=== PATIENT | female | born 1970 | race African-American/Black ===

== ENCOUNTER → 2016-08-05 | Outpatient (CLI) | payer OTHER, BC ==
[~2016-08-05] MED LIST: APAP500 PO; DERMOPLAST SPRA56 ML; IBUPROFEN 600600 M1 PO; LANOLIN56 GM; LORTAB 5 MG/5001 TA1 PO; PHENERGAN 25 MG25 M1 PO; PROMETRIUM200 MG PO; Prenatal PO
== END ==
LOC: ULTRA 01:12
DX: R92.8 Other abnormal and inconclusive findings on diagnostic imaging of breast (principal)

== ENCOUNTER → 2017-08-25 | Outpatient (CLI) | payer OTHER, BC | LOC: RAD 01:45 | DX: Z12.31 Encounter for screening mammogram for malignant neoplasm of breast (principal) ==

== ENCOUNTER → 2018-02-08 | Outpatient (CLI) | payer OTHER, BC | LOC: ULTRA 09:15 | DX: N83.02 Follicular cyst of left ovary (principal); N85.2 Hypertrophy of uterus; N94.6 Dysmenorrhea, unspecified ==

== ENCOUNTER → 2018-08-29 | Outpatient (CLI) | payer OTHER, BC | LOC: RAD 02:02 | DX: Z12.31 Encounter for screening mammogram for malignant neoplasm of breast (principal) ==

== ENCOUNTER → 2019-09-01 | Outpatient (CLI) | payer OTHER, BC | LOC: RAD 09:34 | DX: Z12.31 Encounter for screening mammogram for malignant neoplasm of breast (principal) ==

== ENCOUNTER → 2020-01-15 | Outpatient (CLI) | payer OTHER, BC | LOC: LAB 12:21 | PROVIDERS: ATTEND Nurse Practitioner | DX: R06.02 Shortness of breath (principal); R05 Cough; R50.9 Fever, unspecified; Z20.828 Contact with and (suspected) exposure to other viral communicable diseases ==

== ENCOUNTER → 2020-09-09 | Outpatient (CLI) | payer OTHER, BC | LOC: BC 08:46 | PROVIDERS: ATTEND Family Medicine | DX: Z12.31 Encounter for screening mammogram for malignant neoplasm of breast (principal) ==